=== PATIENT | male | born 1995 | race Hispanic/Latino ===

== ENCOUNTER 2019-01-13 11:22 | Emergency (ER) | payer OTHER, SELFPAY ==
[2019-01-13 11:35] VITALS: BP 111/60; PULSE 82; RESP 16; TEMP 37.1; O2SAT 99; BMI 32.7
--- NOTE | 2019-01-13 12:05 | ED.URI ---
HPI - URI/Sore Throat <KIMO Farias - Last Filed: 01/13/19 22:04> General Chief Complaint: Upper Respiratory Symptoms Stated Complaint: HEADACHE AND THROAT PAIN Time Seen by Provider: 01/13/19 12:04 Source: patient Mode of arrival: ambulatory Limitations: no limitations History of Present Illness HPI Narrative: 23-year-old healthy male that is a nonsmoker here for complaint of sore throat nasal congestion and cough along with headache for the past 5 days. He reports that he has had chills. He has not checked his temperature. He is tolerating p.o. intake well. He reports that his siblings have had similar symptoms over the same timeframe. He denies any stressors or relievers of his symptoms. He reports that immunizations are up-to-date. He denies any other concerns or complaints this timeframe. He is ambulatory into the emergency room. Review of Systems <KIMO Farias - Last Filed: 01/13/19 22:04> Constitutional Reports chills Eyes Denies change in vision, Denies eye discharge, Denies irritation and Denies loss of vision ENT Ears, Nose, Mouth, and Throat: Reports nasal congestion, Reports sore throat and Denies throat swelling Cardiovascular Denies chest pain, Denies irregular heart rhythm, Denies lightheadedness, Denies palpitations and Denies orthopnea Respiratory Reports cough and Denies wheezing Gastrointestinal Gastrointestinal: Denies abdominal pain, Denies change in bowel habits, Denies diarrhea, Denies nausea and Denies vomiting Genitourinary Denies hematuria, Denies flank pain, Denies urinary incontinence and Denies urinary urgency Musculoskeletal Denies back pain, Denies muscle weakness, Denies numbness and Denies tingling Integumentary/Breasts Denies pruritus, Denies erythema, Denies rash and Denies wounds Neurologic Denies confusion, Denies loss of vision, Denies numbness and Denies tingling Psychiatric Denies anxiety, Denies confusion, Denies depression, Denies homicidal ideation and Denies suicidal ideation Endocrine Denies palpitations Hematologic/Lymphatic Denies easy bruising Allergic/Immunologic Denies urticaria, Denies throat swelling and Denies wheezing PFSH <KIMO Farias - Last Filed: 01/13/19 22:04> Social History Smoking Status: Former smoker Social History Smoking Status: Former smoker Exam <KIMO Farias - Last Filed: 01/13/19 22:04> Initial Vital Signs Initial Vital Signs: Vital Signs Temperature 98.7 F 01/13/19 11:35 Pulse Rate 82 01/13/19 11:35 Respiratory Rate 16 01/13/19 11:35 Blood Pressure 111/60 01/13/19 11:35 Pulse Oximetry 99 01/13/19 11:35 Const General: cooperative and well developed Nutritional Appearance: well nourished Orientation: alert, awake, oriented x3 and not confused HENKS Mouth: oral mucosae normal and moist mucous membranes Throat: posterior oropharynx abnormal erythema Eyes Conjunctivae: conjunctivae normal Sclera: sclerae normal Pupils: PERRL EOM: EOM intact bilaterally Resp Effort & Inspection: normal respiratory effort, able to speak in complete sentences, no respiratory distress and no use of accessory muscles Auscultation: clear to auscultation bilaterally, no rales, no rhonchi and no wheezes Cardio Rate: regular rate Rhythm: regular rhythm Heart Sounds: no click, no gallops, no murmurs and no rubs Skin General: no rashes or lesions noted, No jaundice and No petechiae Neuro General: alert, oriented x3, gait normal and no focal motor deficits Speech: speech normal <Nicholas Bal DO - Last Filed: 01/17/19 18:43> Initial Vital Signs Initial Vital Signs: Vital Signs Temperature 98.7 F 01/13/19 11:35 Pulse Rate 82 01/13/19 11:35 Respiratory Rate 16 01/13/19 11:35 Blood Pressure 111/60 01/13/19 11:35 Pulse Oximetry 99 01/13/19 11:35 Course <KIMO Farias - Last Filed: 01/13/19 22:04> Orders Ordered: ED Orders 01/13/19 11:45 FLU A and B [Influenza A and B by PCR Rapid] Stat Vital Signs - 8 hr 01/13/19 11:35 Temperature 98.7 F Pulse Rate 82 Respiratory Rate 16 Blood Pressure 111/60 Pulse Oximetry 99 <Nicholas Bal DO - Last Filed: 01/17/19 18:43> Orders Ordered: ED Orders 01/13/19 11:45 FLU A and B [Influenza A and B by PCR Rapid] Stat Vital Signs - 8 hr 01/13/19 11:35 Temperature 98.7 F Pulse Rate 82 Respiratory Rate 16 Blood Pressure 111/60 Pulse Oximetry 99 MDM - URI/Sore Throat <KIMO Farias - Last Filed: 01/13/19 22:04> Lab Data Lab Results 01/13/19 Range/Units 11:45 Influenza A & B (PCR) Negative (Negative) Point of Care Testing Rapid Strep A Negative MDM Narrative Medical decision making narrative: Rapid strep test was obtained was negative. Influenza swab was also obtained and was negative. Signs and symptoms presents as viral upper respiratory infection. Plenty of fluids and rest. [id number] Tylenol or Motrin as needed for any discomfort. Saline irrigation on showers to help with any nasal congestion. Follow up with primary care provider. Return emergency room for any worsening symptoms. <Nicholas Bal DO - Last Filed: 01/17/19 18:43> Lab Data Lab Results 01/13/19 Range/Units 11:45 Influenza A & B (PCR) Negative (Negative) Point of Care Testing Rapid Strep A Negative Discharge Plan Departure Patient Disposition: Home Clinical Impression: Upper respiratory infection Qualifiers: URI type: unspecified viral URI Qualified Code(s): J06.9 - Acute upper respiratory infection, unspecified Discharge Date/Time: 01/13/19 13:03 Interventions: ED Discharge Assessment Last Done: 01/13/19 13:01 Instructions: DI for Viral Upper Respiratory Infection -- Adult Activity Restrictions/Additional Instructions: Rapid strep test was obtained was negative. Influenza swab was also obtained and was negative. Signs and symptoms presents as viral upper respiratory infection. Plenty of fluids and rest. [id number] Tylenol or Motrin as needed for any discomfort. Saline irrigation on showers to help with any nasal congestion. Follow up with primary care provider. Return emergency room for any worsening symptoms. Referrals: [facility] [Provider Group] <Nicholas Bal DO - Last Filed: 01/17/19 18:43> Cosign ED Attending Mello Attestation: I was available for consultation during this patient's emergency department encounter
[2019-01-13 12:10] LABS: Influenza A and B by PCR Rapid Negative (Negative)
[2019-01-13 12:48] VITALS: BP 105/63; PULSE 62; RESP 17; O2SAT 100
== END 2019-01-13 13:03 | disposition home or self-care (01) ==
PROVIDERS: Emergency Medicine; Emergency Provider Nurse Practitioner Family
DX: J06.9 Acute upper respiratory infection, unspecified (principal)
CPT/HCPCS: 87400; 87880; 99282

== ENCOUNTER 2020-04-07 04:50 | Observation (INO) | payer SELFPAY ==
[2020-04-07] VITALS (10 sets, daily range): BP systolic 108–162; BP diastolic 57–81; PULSE 68–108; RESP 12–18; TEMP 36.8–37.7; O2SAT 96–100; BMI 33.0; BMI 33.1
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
[2020-04-07] MEDS: TET,DIPH,PERTUSS(ACELL),VAC/PF 0.5 ML SYRINGE IM (05:26)
[2020-04-07] MEDS: CEFAZOLIN 2 GM/100 ML FROZ.PIGGY IV ×3 (05:26→21:20)
[2020-04-07 05:29] LABS: Add Manual Diff / Slide Review NO; BUN Creatinine Ratio 17.6 (6-22); Basophils Absolute Auto 100 /uL (0-100); Basophils Percent Auto 0.6 % (0-2); Blood Urea Nitrogen 12 mg/dL (9-20); Calcium 9.2 mg/dL (8.4-10.2); Carbon Dioxide 20 mmol/L (22-32); Chloride 106 mmol/L (98-107); Eosinophils Absolute Auto 200 /uL (0-450); Eosinophils Percent Auto 1.7 % (2-4); Estimated Glomerular Filt Rate > 60.0 mL/min (>60); Glucose 121 mg/dL (70-100); HEMOLYSIS < 15 (0-50); Hematocrit 44.5 % (41-53); Hemoglobin 15.4 g/dL (13.5-17.5); Lymphocytes Absolute Auto 3600 /uL (1100-4500); Lymphocytes Percent Auto 30.1 % (25-40); Mean Corpuscular HGB Conc 34.5 % (30-36); Mean Corpuscular Volume 87.1 fL (80-100); Monocytes Absolute Auto 1100 /uL (0-900); Monocytes Percent Auto 8.8 % (3-14); Neutrophils Absolute Auto 7000 /uL (1500-7000); Neutrophils Percent Auto 58.8 % (50-75); Platelet Count 168 X10^3/uL (150-400); Potassium 3.1 mmol/L (3.4-5.1); Red Blood Cell Count 5.11 X10^6/uL (4.5-5.9); Red Cell Distribution Width 13.4 % (11.6-14.8); Sodium 140 mmol/L (137-145); White Blood Cell Count 11.9 X10^3/uL (4.5-11.0)
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
[2020-04-07] MEDS: HYDROMORPHONE 0.5 MG INJ IV (05:40)
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
[2020-04-07] MEDS: OXYCODONE IR 5 MG TABLET PO ×4 (08:34→21:20)
[2020-04-07] MEDS: LACTATED RINGERS 1,000 ML 100 ML IV ×2 (08:35→21:21)
[2020-04-07 08:37] LABS: COVID19 -Nasal RAPID Negative (Negative)
[2020-04-07] MEDS: ONDANSETRON 4 MG/2 ML INJ IV (10:02)
--- NOTE | 2020-04-07 10:20 | PC.NURSE ---
Admit Note Pt arrived to room 224 from ER at 0825. Scooted self from stretcher to bed independently. Reports pain to left leg 8/10, medicated with oxycodone. Moderate amount of sanguinous drainage noted on arrival surrounding the LLE. Left leg cleansed and gauze dressings placed to left lateral calf and to back of knee, secured with kerlex. Strong pulses noted to BLE, pt reports numbness to top of left foot - unchanged from ER and Dr. Sotelo aware. Oriented to room and to call light/bed/tv controls. Call light within reach. Clothing (only belongings) placed in room closet.
[2020-04-07] MEDS: ACETAMINOPHEN 325 MG TABLET 650 MG PO ×2 (13:20→17:40)
[2020-04-07 18:13] LABS: Add Manual Diff / Slide Review NO; Basophils Absolute Auto 0 /uL (0-100); Basophils Percent Auto 0.4 % (0-2); Eosinophils Absolute Auto 0 /uL (0-450); Eosinophils Percent Auto 0.3 % (2-4); Hematocrit 40.4 % (41-53); Hemoglobin 14.1 g/dL (13.5-17.5); Lymphocytes Absolute Auto 1200 /uL (1100-4500); Lymphocytes Percent Auto 14.1 % (25-40); Mean Corpuscular HGB Conc 34.9 % (30-36); Mean Corpuscular Volume 86.1 fL (80-100); Monocytes Absolute Auto 700 /uL (0-900); Monocytes Percent Auto 8.5 % (3-14); Neutrophils Absolute Auto 6500 /uL (1500-7000); Neutrophils Percent Auto 76.7 % (50-75); Platelet Count 148 X10^3/uL (150-400); Red Blood Cell Count 4.69 X10^6/uL (4.5-5.9); Red Cell Distribution Width 13.3 % (11.6-14.8); White Blood Cell Count 8.5 X10^3/uL (4.5-11.0)
[2020-04-07 18:23] LABS: BUN Creatinine Ratio 7.7 (6-22); Blood Urea Nitrogen 5 mg/dL (9-20); Calcium 8.7 mg/dL (8.4-10.2); Carbon Dioxide 25 mmol/L (22-32); Chloride 99 mmol/L (98-107); Estimated Glomerular Filt Rate > 60.0 mL/min (>60); Glucose 149 mg/dL (70-100); HEMOLYSIS < 15 (0-50); Potassium 3.3 mmol/L (3.4-5.1); Sodium 135 mmol/L (137-145)
[2020-04-07] MEDS: DOCUSATE 100 MG CAPSULE PO (21:21)
--- NOTE | 2020-04-07 21:22 | PC.NURSE ---
2109 pt states improvement in decreased sensation to dorsal left foot.
[2020-04-08] VITALS: BP 118/62; PULSE 82; RESP 16; TEMP 36.8; O2SAT 99
[2020-04-08] MEDS: ACETAMINOPHEN 325 MG TABLET 650 MG PO ×3 (00:39→12:57)
[2020-04-08] MEDS: OXYCODONE IR 5 MG TABLET PO ×3 (01:23→12:58)
[2020-04-08 04:41] VITALS: BP 96/57; PULSE 82; RESP 16; TEMP 36.3; O2SAT 98
[2020-04-08 05:25] LABS: Add Manual Diff / Slide Review NO; Basophils Absolute Auto 0 /uL (0-100); Basophils Percent Auto 0.4 % (0-2); Eosinophils Absolute Auto 100 /uL (0-450); Eosinophils Percent Auto 1.3 % (2-4); Hematocrit 37.3 % (41-53); Hemoglobin 12.8 g/dL (13.5-17.5); Lymphocytes Absolute Auto 2100 /uL (1100-4500); Lymphocytes Percent Auto 22.9 % (25-40); Mean Corpuscular HGB Conc 34.4 % (30-36); Mean Corpuscular Hemoglobin 29.7 PG (26-34); Mean Corpuscular Volume 86.3 fL (80-100); Monocytes Absolute Auto 1000 /uL (0-900); Monocytes Percent Auto 11.5 % (3-14); Neutrophils Absolute Auto 5800 /uL (1500-7000); Neutrophils Percent Auto 63.9 % (50-75); Platelet Count 129 X10^3/uL (150-400); Red Blood Cell Count 4.32 X10^6/uL (4.5-5.9); Red Cell Distribution Width 13.4 % (11.6-14.8); White Blood Cell Count 9.1 X10^3/uL (4.5-11.0)
[2020-04-08] MEDS: CEFAZOLIN 2 GM/100 ML FROZ.PIGGY IV ×2 (05:47→12:58)
[2020-04-08] MEDS: LACTATED RINGERS 1,000 ML 100 ML IV (06:52)
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
[2020-04-08 08:00] VITALS: BP 127/69; PULSE 88; RESP 16; TEMP 36.9; O2SAT 97
[2020-04-08] MEDS: DOCUSATE 100 MG CAPSULE PO (08:42)
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
--- NOTE | 2020-04-08 15:11 | PC.NURSE ---
Discharge: Pt has seen md and received their instructions. MD showed pt how to change dressing with 4x4's and kerlix. Pt given enough dressing supplies for 2 days since he may need to order kerlex. PT worked with patient and they gave instructions for home care with crutches. Rx given. Pt antibiotic script was esent to pharmacy and he is aware. Reviewed d/c packet. Questions answered. po pain meds have been effective here at the hospital. Diet tolerated without problems and vds w/out diff. Pt d/c home via auto w/friend.
== END 2020-04-08 15:10 | disposition home or self-care (01) ==
LOC: ED 06:34 → AC 06:35
PROVIDERS: Admitting Provider Surgery; Emergency Provider Emergency Medicine; Referring Provider Emergency Medicine; Visit Provider Surgery
DX: M79.662 Pain in left lower leg (principal); W32.0XXA Accidental handgun discharge, initial encounter; S81.842A Puncture wound with foreign body, left lower leg, initial encounter; Z11.59 Encounter for screening for other viral diseases
CPT/HCPCS: 36415; 73590; 75635; 80048; 85025; 86850; 86900; 86901; 87635; 90471; 96365; 96366; 96375; 97116; 97161; 99217; 99219; 99285; G0378; 90715; J0690; J1170; J2405; Q9967

== ENCOUNTER 2020-06-06 07:30 | Outpatient (RCR) | payer SELFPAY ==
[2020-04-07 08:54] VITALS: BMI 33.1
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
--- NOTE | 2020-04-23 08:44 | PT-IP ANOTE ---
PT returns call to Dr. Sotelo. Surgeon states that pt can be WBAT. She reports concern about peripheral nerve injury, possibly superficial fibular nerve vs compartment issue. Pt states that pt's dressing can come off and bandaids over wounds so that Tubagrip can be tried.
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
--- NOTE | 2020-06-20 07:46 | PT-OP ANOTE ---
Pt does not show for appointment. PT left message about appointments last week and no return phone call. Left message. Will d/c PT.
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
== END 2020-06-27 09:09 | disposition home or self-care (01) ==
LOC: PHYS 07:30
PROVIDERS: Referring Provider Surgery; Visit Provider Surgery
DX: S89.92XA Unspecified injury of left lower leg, initial encounter (principal); W34.00XA Accidental discharge from unspecified firearms or gun, initial encounter
CPT/HCPCS: 97110; 97116; 97161; 97535

== ENCOUNTER → 2021-08-28 09:44 | Outpatient (CLI) | payer SELFPAY ==
[2020-04-07 08:54] VITALS: BMI 33.1
--- NOTE | 2021-08-28 09:49 | DI.RAD.S_ITS ---
PROCEDURE: XR ANKLE RT MIN 3V INDICATIONS: Ankle injury TECHNIQUE: 3 views of the ankle were acquired. COMPARISON: None. FINDINGS: Bones: No fractures or dislocations. Ankle mortise is normally aligned. No suspicious bony lesions. Soft tissues: No tibiotalar joint effusion. Achilles tendon appears normal. IMPRESSION: No visualized acute fracture or dislocation. However, if clinical concern and/or pain persist, short interval imaging followup in 7-10 days is recommended, as occult injury cannot be definitively excluded. Dictated by: Brit Blackwood M.D. on 08/28/2021 at 9:59 Approved by: Brit Blackwood M.D. on 08/28/2021 at 10:12
== END ==
PROVIDERS: Referring Provider Nurse Practitioner Family; Visit Provider Nurse Practitioner Family
DX: S99.911A Unspecified injury of right ankle, initial encounter (principal); X58.XXXA Exposure to other specified factors, initial encounter
CPT/HCPCS: 73610